=== PATIENT | male | born 1995 | race Caucasian/White ===

== ENCOUNTER 2022-04-12 21:11 | Emergency (ER) | payer SELFPAY ==
[2022-04-12] MEDS ORDERED: Ketorolac 30 MG/ML SDV IM ONE (22:20)
[2022-04-12] MEDS ORDERED: Ondansetron 4 MG Tab.DIS PO ONE (22:22)
[2022-04-12 22:38] LABS: STREP A BY PCR NOT DETECTED (NOT DETECT)
[2022-04-12 22:50] LABS: CORONAVIRUS COVID-19 NAA NEGATIVE (NEGATIVE)
== END 2022-04-12 22:40 | disposition home or self-care (01) ==
LOC: FB.ED 21:11
DX: B34.9 Viral infection, unspecified (principal); Z28.310 Unvaccinated for COVID-19; Z86.16 Personal history of COVID-19; Z20.822 Contact with and (suspected) exposure to COVID-19
CPT/HCPCS: 87635; 87651; 96372; 99284; J1885; Q0162; U0002